=== PATIENT | female | born 1940 | race Caucasian/White ===

== ENCOUNTER → 2016-11-12 | Outpatient (CLI) | payer OTHER, BC ==
[~2016-11-12] MED LIST: ALKA-SELTZER E500 M1 PO; CLONAZEPAM 1 MG1 M1 PO; KEFLEX500 MG PO; OMEPRAZOLE 20 M20 M1 PO; OXAZEPAM 10MG C10 M1 PO; PANTOPRAZOLE SO40 M1 PO; PHENERGAN 25 MG25 M1 PO; PROTONIX40 M1 PO; PROTONIX40 MG PO
--- NOTE | ~2016-11-12 | P ---
[facility] [place] [address] PROCEDURE REPORT Name: ROGELIO SAWYER Room #: REG [place]#: [id number] Admission: 11/12/16 Attend Phys: Bebeto Zaragoza Discharge: Date of : 42 Report #: [id number] THIS REPORT FOR: //name// CC: Bebeto Hanson MD DATE OF SERVICE: 11/12/2016 PROCEDURE PERFORMED: Upper endoscopy with biopsies. HISTORY OF PRESENT ILLNESS: The patient is a 76-year-old female with nausea since May of this year. No new medications, although she has tried several medications, some of which has been helpful. She does take Phenergan on a p.r.n. basis. No previous history of upper endoscopy. She denies any significant dysphagia. No vomiting. Her weight has been fairly stable. Pain has actually improved after eating. She reports her bowel movements have been somewhat constipated. She has not tried . She denies any significant heartburn symptoms. DESCRIPTION OF PROCEDURE: The risks and benefits of the procedure were explained to the patient, those risks including, but not limited to bleeding, perforation, the risk of sedation. She understood these risks and gave informed consent. Sedation was given using propofol per anesthesia. Next, using a standard [employer] upper endoscope, the scope was placed in the patient's mouth and advanced under direct vision to the esophagus, stomach and into the second portion of the duodenum. The larynx was normal in appearance. The upper esophagus was normal. In the mid to distal esophagus, there was a possibility of grade 1 esophageal varices. No stigmata of bleeding. In the distal esophagus, there is slight Schatzki's ring was noted with grade C erosive esophagitis. No active bleeding. Upon entering the stomach, a small hiatal hernia was noted. Overall, the gastric mucosa was normal in the fundus and body; however, in antrum, there were several clean white based ulcers range in size from 3-6 mm, no evidence of bleeding. Several erosions were also noted as well as surrounding gastritis. Biopsies were obtained to rule out H. pylori. The pylorus was normal and patent. The duodenal bulb, first and second portion were all normal. Biopsies of the second portion were also obtained to rule out the possibility of celiac sprue. The scope was then withdrawn and the procedure terminated. The patient tolerated the procedure well. IMPRESSION: 1. Grade C erosive esophagitis. 2. Possible grade 1 esophageal varices. 3. Small Schatzki's ring. 4. Small hiatal hernia. 5. Gastric ulcers and erosions with surrounding gastritis. [address] [address] PROCEDURE REPORT Name: ROGELIO SAWYER Room #: REG [place]#: [id number] Admission: 11/12/16 Attend Phys: Bebeto Zaragoza Discharge: Date of : 42 Report #: [id number] RECOMMENDATIONS: 1. Await biopsy results. 2. We would recommend daily PPI therapy. 3. We will proceed with an ultrasound of the abdomen as well for further evaluation of the liver. Thank you for allowing me to participate in her care. <ELECTRONICALLY SIGNED> By: Bebeto Contreras MD 11/12/16 [id number] Bebeto Contreras MD /nt
--- NOTE | ~2016-11-12 | S ---
[facility] [place] [address] SURGICAL PATH RPT PROCEDURE Name: ROGELIO AGUILAR Room #: REG [facility] Shelli.#: [id number] Admission: 11/12/16 Date of : 42 Discharge: Report #: [id number] Path Case #: [id number] PATHOLOGY REPORT COLLECTION DATE: 11/12/2016 RECEIVED DATE: 11/12/2016 SUBMITTING PHYS: Dr. Bebeto Contreras OTHER PHYS: Dr. Tj Hanson SPECIMEN(S) RECEIVED: A.Duodenal bx B.Gastric ulcers bx * * * * * * * * * * * * FINAL DIAGNOSIS: A. Small bowel, duodenum, endoscopic biopsy: - No diagnostic abnormalities present. B. Gastric mucosa, rule out H. pylori, endoscopic biopsy: - Moderate reactive gastropathy with focal fibrotic lamina propria consistent with the provided history of ulcer. - Negative for intestinal metaplasia or atrophy. - Negative for Helicobacter pylori. COMMENT: Helicobacter pylori immunohistochemical stain performed on block B1-negative. (IUV:mgr; d/t: 11/13/16) PATHOLOGIST: Brenda Richardson M.D. REPORT ELECTRONICALLY SIGNED BY: Brenda Richardson M.D. DATE/TIME: 11/13/2016 15:36 * * * * * * * * * * * * GROSS PATHOLOGY: A. Received in formalin labeled "Rogelio Jeff duodenal biopsy," are five segments of alfaro soft tissue measuring 1.0 x 0.9 x 0.1 cm in aggregate dimensions and ranging from 0.1 to 0.5 cm in maximum dimension. The specimen is submitted entirely in cassette A1. B. Received in formalin labeled "Rogelio Aguilar, gastric biopsy," are three segments of alfaro soft tissue measuring 0.8 x 0.8 x 0.2 cm in aggregate dimensions and ranging from 0.3 to 0.5 cm in maximum dimension. The specimen is submitted entirely in cassette B1. (CAA; 11/12/2016) CLINICAL HISTORY: [address] [address] SURGICAL PATH RPT PROCEDURE Name: ROGELIO AGUILAR Room #: REG [facility]..#: [id number] Admission: 11/12/16 Date of : 42 Discharge: Report #: [id number] Path Case #: [id number] Gastric ulcer A. R/O sprue B. R/O H. pylori INITIAL CPT CODE(S): A; 41963 B; 53952, 67135 Professional services performed by [facility] [address], [place] [address] Technical services performed by [facility] at [address] [place] [address], [facility] [address] [address]. [facility] [address] [place] [address] PHONE: [phone] DIRECTOR: Vishal Owen M.D. * * * END OF REPORT * * *
== END ==
LOC: GI 02:04
DX: K20.9 Esophagitis, unspecified (principal); K44.9 Diaphragmatic hernia without obstruction or gangrene; K22.2 Esophageal obstruction; K29.70 Gastritis, unspecified, without bleeding
CPT/HCPCS: 62110; 62900